=== PATIENT | male | born 1955 | race Caucasian/White ===

== ENCOUNTER 2017-06-20 11:32 | Emergency (ER) | payer MEDICARE, MEDICAID ==
[2017-06-20 11:32] VITALS: BMI 30.7
[2017-06-20 11:46] VITALS: TEMP 98.5
--- NOTE | 2017-06-20 12:59 | ED PDOC ---
HPI: Abdomen Time Seen by Provider: 06/20/17 12:31 Chief Complaint (Nursing): Abdominal Pain Chief Complaint (Provider): Abdominal Pain History Per: Patient History/Exam Limitations: no limitations Onset/Duration Of Symptoms: Hrs (x 2) Current Symptoms Are (Timing): Still Present Location Of Pain/Discomfort: LUQ, LLQ Associated Symptoms: denies: Fever, Chills, Nausea, Vomiting, Diarrhea Additional Complaint(s): Reinaldo Downs is a 61 year old male, with a past medical history of diabetes, who presents to the emergency department complaining of abdominal pain onset for x2 hours. Patient reports the pain radiates to the left flank. Patient did not take any pain medication. He denies any fever, chills, urinary symptoms, nausea, vomit, or diarrhea. No further medical complaints. PMD: Aby Rojas Past Medical History Reviewed: Historical Data, Nursing Documentation, Vital Signs Vital Signs: Last Vital Signs Temp 98.5 F 06/20/17 11:43 Pulse 67 06/20/17 15:34 Resp 19 06/20/17 15:34 BP 116/79 06/20/17 15:34 Pulse Ox 98 06/20/17 15:34 - Medical History PMH: Depression, Diabetes, HTN (controlled), Hypercholesterolemia, Hyperlipidemia (controlled), Seizures, Sleep Apnea (on CPap machine at ) Denies: Chronic Kidney Disease - Surgical History Surgical History: No Surg Hx Other surgeries: Knee replacement - Family History Family History: States: Unknown Family Hx - Social History Current smoker - smoking cessation education provided: No Alcohol: None Drugs: Denies - Immunization History Hx Tetanus Toxoid Vaccination: No Hx Influenza Vaccination: Yes Hx Pneumococcal Vaccination: No - Home Medications Home Medications: Ambulatory Orders Medication Instructions Recorded Sertraline HCl [Zoloft] 20 mg PO DAILY 11/15/13 Amoxicillin/Clavulanate [Augmentin 1 tab PO BID #14 tab 07/15/15 875 MG-125 MG] Glimepiride 4 mg PO DAILY 07/15/15 Ibuprofen [Motrin Tab] 800 mg PO TID PRN #12 tab 07/15/15 metFORMIN [glucOPHAGE] 500 mg PO BID 07/15/15 - Allergies Allergies/Adverse Reactions: Allergies Allergy/AdvReac Type Severity Reaction Status Date / Time No Known Allergies Allergy Verified 06/20/17 11:43 Review of Systems ROS Statement: Except As Marked, All Systems Reviewed And Found Negative Constitutional: Negative for: Fever, Chills Gastrointestinal: Positive for: Abdominal Pain (Left quadrant radiates to back) . Negative for: Nausea, Vomiting, Diarrhea Musculoskeletal: Positive for: Back Pain (radiation from the abdominal pain) Physical Exam - Reviewed Nursing Documentation Reviewed: Yes Vital Signs Reviewed: Yes - Physical Exam Appears: Positive for: Non-toxic, No Acute Distress Head Exam: Positive for: ATRAUMATIC, NORMOCEPHALIC Skin: Positive for: Normal Color, Warm, Dry Eye Exam: Positive for: Normal appearance Neck: Positive for: Normal, Painless ROM, Supple Respiratory: Positive for: Normal Breath Sounds. Negative for: Respiratory Distress Gastrointestinal/Abdominal: Positive for: Soft, Tenderness (LUQ & LLQ). Negative for: Guarding, Rebound Back: Positive for: L CVA Tenderness Extremity: Positive for: Normal ROM (upper and lower extremities). Negative for : Deformity, Swelling Neurologic/Psych: Positive for: Alert, Oriented - Laboratory Results Result Diagrams: 06/20/17 13:10 06/20/17 13:10 - ECG O2 Sat by Pulse Oximetry: 97 (RA) Pulse Ox Interpretation: Normal Medical Decision Making Medical Decision Making: Initial Impression: colitis, diverticulitis, kidney stones and UTI Initial Plan: --EKG --CMP --Lipase --Urine dipstick --CBC --PTT --Prothrombin Time --Morphine 2 mg IV --Urinalysis Accession No. : [id number] Patient Name / ID : [id number] Pantoja / [id number] Exam Date : 06/20/2017 13:47:19 ( Approved ) Study Comment : Sex / Age : M / 61Y Creator : Tee Pool MD Dictator : Tee Pool MD Telephone Lines Repairer : General Cargo Clerk : Tee Pool MD Approver2 : Report Date : 06/20/2017 14:51:54 My Comment : PROCEDURE: CT Abdomen and Pelvis without intravenous contrast HISTORY: L flank pain COMPARISON: None. TECHNIQUE: Helical CT of the abdomen and pelvis was performed without oral or intravenous contrast as per referring physician request. Contrast Dose: None Radiation dose: Total exam DLP = 1022.54 mGy-cm. This CT exam was performed using one or more of the following dose reduction techniques: Automated exposure control, adjustment of the mA and/or kV according to patient size, and/or use of iterative reconstruction technique. FINDINGS: LOWER THORAX: Mild cardiomegaly identified. Limited bilateral basilar ground-glass opacity without alveolitis, pleural effusion or pneumothorax appreciable grossly. No pericardial effusion. LIVER: Unremarkable. No gross lesion or ductal dilatation. GALLBLADDER AND BILE DUCTS: Unremarkable. PANCREAS: Unremarkable. No gross lesion or ductal dilatation. SPLEEN: Unremarkable. ADRENALS: Unremarkable. No mass. KIDNEYS AND URETERS: Unremarkable. No hydronephrosis. No radiodense urolithiasis identified within either kidney or ureter. VASCULATURE: Unremarkable. No aortic aneurysm. BOWEL: Limited distal left colonic diverticular changes are appreciate without diverticulitis at this time. No obstruction. No gross mural thickening. APPENDIX: Unremarkable. Normal appendix. PERITONEUM: Unremarkable. No free fluid. No free air. LYMPH NODES: Unremarkable. No enlarged lymph nodes. BLADDER: 4.3 mm calculus is identified at the left urinary bladder base likely rib reflecting an expelled left ureteral calculus into the bladder as there is no left hydroureter appreciated at this time. No additional radiodense urolithiasis bilaterally. REPRODUCTIVE: Unremarkable. BONES: No acute fracture. OTHER FINDINGS: None. IMPRESSION: 1. A likely expelled calculus from the left ureter is seen in the left side of the urinary bladder lumen measuring 4.3 mm greatest dimension with no additional radiodense urolithiasis identified bilaterally including both kidneys. No hydronephrosis or hydroureter bilaterally. 2. Minimal distal left diverticular changes without diverticulitis. 3. Mild cardiomegaly with ground-glass changes in the bilateral lung bases incidentally noted. Scribe Attestation: Documented by Camila Robertson, acting as a scribe for Abby Gurrola MD. Provider Scribe Attestation: All medical record entries made by the Scribe were at my direction and personally dictated by me. I have reviewed the chart and agree that the record accurately reflects my personal performance of the history, physical exam, medical decision making, and the department course for this patient. I have also personally directed, reviewed, and agree with the discharge instructions and disposition. Disposition - Clinical Impression Clinical Impression: Kidney stone on left side - Disposition Referrals: Uday Alanis MD [Staff Provider] - Disposition: Routine/Home Disposition Time: 15:20 Condition: IMPROVED Instructions: Kidney Stones in Adults Forms: [employer] (Guyanese) Print Language: GREEK
[2017-06-20] MEDS ORDERED: Sodium Chloride 0.9% 1,000 ML IV STA (13:17)
[2017-06-20 13:21] LABS: BASO # 0.1 K/uL (0.0-0.2); BASO % 1.3 % (0.0-2.0); EOS # 0.2 K/uL (0.0-0.7); EOS % 2.6 % (0.0-4.0); HEMOGLOBIN 14.9 g/dL (12.0-18.0); LYMPH # 1.4 K/uL (1.0-4.3); LYMPH % 15.1 % (20.0-40.0); MEAN CELL VOLUME 90.6 fl (80.0-94.0); MEAN CORPUSCULAR HEMOGLOBIN 31.5 pg (27.0-31.0); MEAN CORPUSCULAR HGB CONC 34.8 g/dL (33.0-37.0); MEAN PLATELET VOLUME 8.5 fl (7.2-11.7); MONO # 0.9 K/uL (0.0-0.8); MONO % 9.5 % (0.0-10.0); NEUT # 6.7 K/uL (1.8-7.0); NEUT % 71.5 % (50.0-75.0); NRBC % 0.1 % (0.0-0.0); RBC 4.73 Mil/uL (4.40-5.90); RED CELL DISTRIBUTION WIDTH 13.3 % (11.5-14.5); WHITE BLOOD COUNT 9.3 K/uL (4.8-10.8)
[2017-06-20 13:23] LABS: URINE BACTERIA RARE (<OCC); URINE BILIRUBIN NEGATIVE (NEGATIVE); URINE BLOOD MODERATE (NEGATIVE); URINE CLARITY SLIGHTY-CLOUDY (Clear); URINE COLOR YELLOW (YELLOW); URINE GLUCOSE (UA) >=500 mg/dL (Normal); URINE LEUKOCYTE ESTERASE NEG Leu/uL (Negative); URINE PROTEIN NEGATIVE (NEGATIVE)
[2017-06-20 13:28] LABS: INR 1.1 (0.9-1.2); PARTIAL THROMBOPLASTIN TIME 27.9 Seconds (25.6-37.1); PROTHROMBIN TIME 12.2 Seconds (9.8-13.1)
[2017-06-20 13:32] LABS: ALBUMIN 3.9 g/dL (3.5-5.0); CALCIUM 9.1 mg/dL (8.4-10.2); GFR AFRICAN-AMERICAN > 60; GFR NON-AFRICAN AMERICAN > 60; LIPASE 131 U/L (23-300)
[2017-06-20 13:37] LABS: ALT/SGPT 99 U/L (21-72); AST/SGOT 65 U/L (17-59); BLOOD UREA NITROGEN 12 mg/dl (9-20)
--- NOTE | 2017-06-20 14:53 | CT ---
PROCEDURE: CT Abdomen and Pelvis without intravenous contrast HISTORY: L flank pain COMPARISON: None. TECHNIQUE: Helical CT of the abdomen and pelvis was performed without oral or intravenous contrast as per referring physician request. Contrast Dose: None Radiation dose: Total exam DLP = 1022.54 mGy-cm. This CT exam was performed using one or more of the following dose reduction techniques: Automated exposure control, adjustment of the mA and/or kV according to patient size, and/or use of iterative reconstruction technique. FINDINGS: LOWER THORAX: Mild cardiomegaly identified. Limited bilateral basilar ground-glass opacity without alveolitis, pleural effusion or pneumothorax appreciable grossly. No pericardial effusion. LIVER: Unremarkable. No gross lesion or ductal dilatation. GALLBLADDER AND BILE DUCTS: Unremarkable. PANCREAS: Unremarkable. No gross lesion or ductal dilatation. SPLEEN: Unremarkable. ADRENALS: Unremarkable. No mass. KIDNEYS AND URETERS: Unremarkable. No hydronephrosis. No radiodense urolithiasis identified within either kidney or ureter. VASCULATURE: Unremarkable. No aortic aneurysm. BOWEL: Limited distal left colonic diverticular changes are appreciate without diverticulitis at this time. No obstruction. No gross mural thickening. APPENDIX: Unremarkable. Normal appendix. PERITONEUM: Unremarkable. No free fluid. No free air. LYMPH NODES: Unremarkable. No enlarged lymph nodes. BLADDER: 4.3 mm calculus is identified at the left urinary bladder base likely rib reflecting an expelled left ureteral calculus into the bladder as there is no left hydroureter appreciated at this time. No additional radiodense urolithiasis bilaterally. REPRODUCTIVE: Unremarkable. BONES: No acute fracture. OTHER FINDINGS: None. IMPRESSION: 1. A likely expelled calculus from the left ureter is seen in the left side of the urinary bladder lumen measuring 4.3 mm greatest dimension with no additional radiodense urolithiasis identified bilaterally including both kidneys. No hydronephrosis or hydroureter bilaterally. 2. Minimal distal left diverticular changes without diverticulitis. 3. Mild cardiomegaly with ground-glass changes in the bilateral lung bases incidentally noted.
[2017-06-20 15:35] VITALS: BP 116/79; PULSE 67; RESP 19
--- NOTE | 2017-06-21 09:20 | CARD ---
APPROVED REPORT EKG Measurement Heart [id number] <Conclusion> Normal sinus rhythm Incomplete right bundle branch block Borderline ECG
[2017-06-25 13:39] VITALS: O2SAT 97
== END 2017-06-20 15:44 | disposition home or self-care (01) ==
LOC: H.ER 11:32
DX: N20.0 Calculus of kidney (principal); Z86.59 Personal history of other mental and behavioral disorders; E11.9 Type 2 diabetes mellitus without complications; E78.00 Pure hypercholesterolemia, unspecified; I10 Essential (primary) hypertension; Z79.84 Long term (current) use of oral hypoglycemic drugs
CPT/HCPCS: 74176; 80053; 81003; 83690; 85025; 85610; 85730; 93005; 96360; 99283; J2270; J7040